=== PATIENT | male | born 1960 | race Caucasian/White ===

== ENCOUNTER 2019-03-31 16:06 | Emergency (ER) | payer OTHER ==
[~2019-03-31] VITALS: Ht 167.6 cm; Wt 62.6 kg
[2019-03-31 16:18] VITALS: BP 92/66
[2019-03-31 16:52] LABS: Albumin 2.1 g/dL (3.4-5.0); Calcium 7.3 mg/dL (8.5-10.1); Magnesium 2.1 mg/dL (1.6-2.6); Potassium 3.8 mmol/L (3.5-5.1)
[2019-03-31 16:58] LABS: BUN/Creatinine Ratio 14.7; Bilirubin, Total 4.1 mg/dL (0.2-1.0); Total Protein 6.3 g/dL (6.4-8.2)
[2019-03-31 17:06] LABS: Basophils # (auto) 0 uL; Basophils % (auto) 0.1 % (0.0-2.0); Eosinophils # (auto) 0.4 uL; Eosinophils % (auto) 2.5 % (0.0-7.0); Hematocrit 44.5 % (41.0-53.0); Hemoglobin 15.4 g/dL (13.5-17.5); Lymphocytes # (auto) 0.5 uL; Lymphocytes % (auto) 3.1 % (10.0-50.0); Mean Corpuscular Hemoglobin 31.5 pg (28.0-32.0); Mean Corpuscular Hgb Conc. 34.6 g/dL (32.0-36.0); Mean Corpuscular Volume 91.1 fL (80.0-100.0); Monocytes # (auto) 0.7 uL; Neutrophils # (auto) 13.3 uL; Neutrophils % (auto) 89.3 % (37.0-80.0); Nucleated Red Blood Cells % 0.2 %; Platelet Count (auto) 71 10^3/uL (140-450); Red Blood Cells 4.88 10^6/uL (4.5-5.90); Red Cell Distribution Width 15.7 % (11.8-14.3); White Blood Cell 14.9 10^3/uL (4.4-10.8)
[2019-03-31] MEDS ORDERED: DEXTROSE 50% SYRINGE 50 ML IV ONE (23:30)
== END 2019-03-31 21:28 | disposition left against medical advice (07) ==
LOC: ER 16:06
DX: R33.9 Retention of urine, unspecified (principal); Z53.21 Procedure and treatment not carried out due to patient leaving prior to being seen by health care provider
CPT/HCPCS: 36415; 80053; 83735; 83880; 84484; 85025; 93005; 99281; J7042

== ENCOUNTER 2019-03-31 23:24 | Emergency (ER) | payer OTHER ==
[~2019-03-31] VITALS: Ht 177.8 cm; Wt 99.8 kg
[2019-03-31] MEDS ORDERED: SODIUM BICARBONATE 8.4% INJ 50ML SYRINGE IV ONE (23:25)
[2019-03-31] MEDS ORDERED: EPINEPHrine HCL 1 MG/10 ML SYRG IV ONE (23:25)
[2019-03-31] MEDS ORDERED: CALCIUM CHLOR(10%) 100MG/ML 10ML SYRINGE IV ONE (23:25)
[2019-03-31] MEDS ORDERED: DEXTROSE (50%) 50ML SYRG IV ONE (23:25)
== END 2019-04-01 02:40 | disposition expired ==
LOC: ER 23:24 → EDUNIT# 23:24 → EDBD 23:24 → ER 23:36
DX: I46.9 Cardiac arrest, cause unspecified (principal)
CPT/HCPCS: 92950; 99285; J0171; J7042